=== PATIENT | male | born 2000 | race Caucasian/White ===

== ENCOUNTER 2023-10-15 14:54 | Inpatient (IN) | payer SELFPAY ==
--- NOTE | ~2023-10-15 | XR_ITS ---
EXAMINATION: XR CHEST CLINICAL INFORMATION: Difficulty breathing COMPARISON: None available. TECHNIQUE: 2 views of the chest were obtained. FINDINGS: No significant abnormality is noted involving the heart, lungs, mediastinum, bony thorax or soft tissues. XR/XR chest 2V IMPRESSION: Unremarkable examination.
--- NOTE | 2023-10-15 14:57 | ECG_ITS ---
Test Reason : CHEST PAIN Blood Pressure : / mmHG Vent. Rate : 133 BPM Atrial Rate : 133 BPM P-R Int : 122 ms QRS Dur : 086 ms QT Int : 298 ms P-R-T Axes : 082 093 054 degrees QTc Int : 443 ms Sinus tachycardia Rightward axis Borderline ECG No previous ECGs available Referred By: Saba Galo Electronically Signed By:ROSLYN CROCKETT MD
--- NOTE | 2023-10-15 14:58 | ED_ITS ---
HPI - General Adult General Chief complaint: Upper Respiratory Symptoms Stated complaint: Chest Pain Since This AM Time Seen by Provider: 10/15/23 19:57 History of Present Illness HPI narrative: 23 y/o M patient; PMH asthma; presents from home with report of one day on non- productive cough associated with dyspnea since this morning. The patient used multiple respiratory treatments at home without relief. He reports associated sick contacts at home. He states he required PICU admissions as a child, last emergency visit with admission for asthma exacerbation was three years ago when the patient was COVID +. He endorses he is a smoker. Related Data Allergies Allergy/AdvReac Type Severity Reaction Status Date / Time No Known Allergies Allergy Verified 10/15/23 14:58 Review of Systems 2 Review of Systems: Yes all other systems are reviewed and are negative [facility] Past Medical History Attestation statement: The following information was validated with the patient. Source: old records reviewed Social History Social History Smoked in Last 30 Days: No Use of substances other than those prescribed or required for medical reasons: Yes Substance Use Type: Marijuana Advance Directives: No Advance Directives Information Provided: No Physical Exam ED Vital Signs: Vital Signs - 24 hr 10/15/23 14:59 10/15/23 16:31 10/15/23 20:13 Temperature 100.0 F 103.2 F H Pulse Rate 130 H 138 H 123 H Respiratory Rate 24 H 20 17 Blood Pressure 114/68 122/81 Pulse Oximetry 89 L 96 Oxygen Delivery Method Room Air 10/15/23 20:18 Temperature Pulse Rate 127 H Respiratory Rate 20 Blood Pressure Pulse Oximetry Oxygen Delivery Method BMI result Body Mass Index 20.7 Patient is afebrile, tachycardic, tachypnic and hypoxic on RA. Const General: cooperative HENMT Head: Yes atraumatic Eyes General: appearance normal, both eyes and all related structures Pupils: Equal, round and reactive pupils present EOM: EOMs intact bilaterally Neck Neck: Yes normal visual inspection, Yes full ROM, Yes supple and No tender Chest Chest palpation & inspection: normal inspection of the chest and normal palpation of entire chest wall Resp Other: Bilateral wheezing with decreased air entry Effort & Inspection: normal respiratory effort, able to speak in complete sentences, Actively coughing and no respiratory distress Auscultation: wheezes Cardio Rate: regular rate Rhythm: regular rhythm Peripheral pulses: Peripheral pulses 2+ throughout GI Inspection: Yes normal to inspection, No Abdominal wall edema and No distended Palpation (GI): Soft to palpation, not firm, nontender, no guarding and not rigid Auscultation: normal bowel sounds Neuro Cranial nerves: Yes Equal, round and reactive pupils present Course Course Course Narrative: RME:?23 yo male w/ hx of asthma here for eval of difficulty breathing since this morning. felt feverish a few days ago. this morning began to have difficulty breathing with substernal chest tightness. Does not have an inhaler at home. endorses using Q.branch nebulizer this am prior to arrival. last exacerbation 2 mo ago. Admits to smoking marijuana. +inspiratory wheezes to left lung, +tripoding, +cough cxr, EKG, labs, ed bronch protocol ordered Full HPI, ROS and PE to be performed by the primary ED provider. Reevaluation(s) Reevaluation #1: Patient is afebrile, tachycardia, tachypnic, and hypoxic on RA. Reviewed triage provider work up above. Patient received Albuterol inhaler 8 puffs x1. CXR without evidence of pneumonia. Patient remains tachypnic with reduced air entry on exam. Requested for second breathing treatment. Will provide 1L IVF, Solu-Medrol 125mg IV, and Magnesium 2g IV over 20min for respiratory distress. Re-evaluated patient who remains hypoxic with tachycardia. Placed on 2L NC. Provided tamiflu due to significant respiratory risk factors. Discussed need for admission with hospitalist. Plan: Admit to hospitalist Condition: Stable Medications Administered Generic Name Dose Route Start Last Admin Trade Name Freq PRN Reason Stop Dose Admin Sodium Chloride 1,000 mls @ 999 mls/hr 10/15/23 20:15 10/15/23 20:26 Ns IV 10/15/23 21:15 999 mls/hr .Q1H1M BAN Administration Discontinued Medications Generic Name Dose Route Start Last Admin Trade Name Freq PRN Reason Stop Dose Admin Acetaminophen 975 mg 10/15/23 20:00 10/15/23 20:24 Acetaminophen 325 Mg Tablet PO 10/15/23 20:01 975 mg ONCE ONE Administration Albuterol Sulfate 8 puff 10/15/23 16:24 10/15/23 16:30 Albuterol Sulfate 90 Mcg 8 Gm Inhaler INHALE 10/15/23 16:25 8 puff ONCE ONE Administration Magnesium Sulfate 2 gm in 50 mls @ 150 mls/hr 10/15/23 20:07 10/15/23 20:25 Magnesium Sulfate/H2o IV 10/15/23 20:26 150 mls/hr ONCE ONE Administration Levalbuterol HCl 2.5 mg 10/15/23 20:11 10/15/23 20:14 Levalbuterol Hcl 1.25 Mg/3 Ml Vial.Neb INHALE 10/15/23 20:12 2.5 mg ONCE ONE Administration Methylprednisolone Sodium Succinate 125 mg 10/15/23 20:08 10/15/23 20:25 Methylprednisolone Sod Succ 125 Mg/2 Ml Vial IVPUSH 10/15/23 20:09 125 mg ONCE ONE Administration Medical Decision Making Lab Data 10/15/23 15:13 10/15/23 15:13 Labs: Lab Results 10/15/23 Range/Units 15:13 WBC 8.8 (4.8-10.8) X10*3/uL RBC 4.96 (4.60-5.80) X10*6/uL Hgb 15.5 (14.0-18.0) g/dl Hct 45.1 (42.0-52.0) % MCV 90.9 (80.0-98.0) fL MCH 31.3 (27.0-33.0) pg MCHC 34.4 (31.0-36.0) g/dl RDW 13.0 (11.0-16.0) % Plt Count 280 (160-400) X10*3/uL MPV 10.4 (9.4-12.4) fL Immature Gran % (Auto) 0.3 (0.0-0.4) % Neut % (Auto) 86.4 H (45-73) % Lymph % (Auto) 4.3 L (20-40) % [place] % (Auto) 8.7 (2-11) % Eos % (Auto) 0.0 (0-4) % Baso % (Auto) 0.3 (0-2) % Lymph # (Auto) 0.4 L (1.2-4.9) X10*3/uL [place] # (Auto) 0.8 (0.1-1.2) X10*3/uL Eos # (Auto) 0.0 (0.0-0.4) X10*3/uL Baso # (Auto) 0.0 (0.0-0.2) X10*3/uL Abs Immat Gran (auto) 0.03 (0.00-0.03) X10*3/uL Absolute Neuts (auto) 7.6 (2.0-8.3) x10*3/uL Absolute Nucleated RBC 0.000 (0.0-0.012) X10*3/uL Nucleated RBC % (auto) 0.0 (0.0-0.2) /100WBC PT 17.8 H (11.1-13.3) SEC INR 1.5 H (0.9-1.1) Sodium 136 (135-145) mmol/L Potassium 3.7 (3.3-5.1) mmol/L Chloride 102 (96-108) mmol/L Carbon Dioxide 25 (22-29) mmol/L Anion Gap 13 (12-20) BUN 15 (9-16) mg/dL Creatinine 1.31 (0.5-1.4) mg/dL Estim Creat Clear Calc 74.9 Estimated GFR > 60 Random Glucose 134 H (60-115) mg/dL Calcium 9.5 (8.4-10.2) mg/dL Magnesium 2.0 (1.6-2.6) mg/dL Influenza Type A (PCR) POSITIVE A (Negative) Influenza Type B (PCR) NEGATIVE (Negative) RSV RNA Qual (PCR) NEGATIVE (Negative) SARS-CoV-2 RNA (RT-PCR) NEGATIVE (Negative) Independent Interpretation I performed an independent interpretation of an: EKG Interpretation: ST 133BPM with normal intervals, no prior for comparison. Radiology Impression Discussion of test interpretation with radiology: I have reviewed the radiologist's reading. Radiologist Impression: EXAMINATION: XR CHEST CLINICAL INFORMATION: Difficulty breathing COMPARISON: None available. TECHNIQUE: 2 views of the chest were obtained. FINDINGS: No significant abnormality is noted involving the heart, lungs, mediastinum, bony thorax or soft tissues. XR/XR chest 2V IMPRESSION: Unremarkable examination. Discharge Plan Discharge Clinical Impression: Asthma, Influenza Patient Disposition: Admitted As Inpatient
[2023-10-15 14:59] VITALS: BP 114/68; PULSE 130; RESP 24; TEMP 37.8; O2SAT 89; BMI 20.7
[2023-10-15 15:22] LABS: MANUAL DIFF FLAG NO
[2023-10-15 15:23] LABS: Basophils Percent Auto 0.3 % (0-2); Hematocrit 45.1 % (42.0-52.0); Hemoglobin 15.5 g/dl (14.0-18.0); Imm Gran Abs Auto 0.03 X10*3/uL (0.00-0.03); Imm Gran Pct Auto 0.3 % (0.0-0.4); Lymphocytes Absolute Auto 0.4 X10*3/uL (1.2-4.9); Lymphocytes Percent Auto 4.3 % (20-40); Mean Corpuscular HGB Conc 34.4 g/dl (31.0-36.0); Mean Corpuscular Hemoglobin 31.3 pg (27.0-33.0); Mean Corpuscular Volume 90.9 fL (80.0-98.0); Mean Platelet Volume 10.4 fL (9.4-12.4); Monocytes Absolute Auto 0.8 X10*3/uL (0.1-1.2); Monocytes Percent Auto 8.7 % (2-11); Neutrophils Absolute Auto 7.6 x10*3/uL (2.0-8.3); Neutrophils Percent Auto 86.4 % (45-73); Platelet Count 280 X10*3/uL (160-400); Red Blood Count 4.96 X10*6/uL (4.60-5.80); White Blood Count 8.8 X10*3/uL (4.8-10.8)
[2023-10-15 15:29] LABS: INTERNATIONAL NORM RATIO 1.5 (0.9-1.1); Prothrombin Time 17.8 SEC (11.1-13.3)
[2023-10-15 15:41] LABS: Anion Gap 13 (12-20); Blood Urea Nitrogen 15 mg/dL (9-16); Calcium 9.5 mg/dL (8.4-10.2); Carbon Dioxide 25 mmol/L (22-29); Chloride 102 mmol/L (96-108); Creatinine Clr Calc Pharmacy 74.9; Estimated Glomerular Filt Rate > 60; Glucose Random 134 mg/dL (60-115); Potassium 3.7 mmol/L (3.3-5.1); Sodium 136 mmol/L (135-145)
[2023-10-15 16:00] LABS: Influenza A PCR POSITIVE (Negative); Influenza B PCR NEGATIVE (Negative); Resp Syncy Virus RNA Qual PCR NEGATIVE (Negative); SARS COV2 PCR INHOUSE NEGATIVE (Negative)
[2023-10-15] MEDS: Albuterol Sulfate 90 MCG 8 GM INHALER 8 PUFF INHALE (16:30)
[2023-10-15 16:31] VITALS: PULSE 138; RESP 20; O2SAT 92
[2023-10-15 20:13] VITALS: BP 122/81; PULSE 123; RESP 17; TEMP 39.6; O2SAT 96
[2023-10-15] MEDS: levalbuterol HCL 1.25 MG/3 ML VIAL.NEB 2.5 MG INHALE (20:14)
[2023-10-15 20:18] VITALS: PULSE 127; RESP 20; O2SAT 96
[2023-10-15] MEDS: Acetaminophen 325 MG TABLET 975 MG PO (20:24)
[2023-10-15] MEDS: Magnesium Sulfate/H2O 2 GM/50 ML PIGGYBACK IV (20:25)
[2023-10-15] MEDS: methylPREDNISolone Sod Succ 125 MG/2 ML VIAL IVPUSH (20:25)
[2023-10-15] MEDS: 0.9 % Sodium Chloride 1,000 ML 999 ML IV (20:26)
--- NOTE | 2023-10-15 20:41 | PC.NURSE ---
Resp with pt. Pt ca&ox4, pt currentlt receiving albuterol tx. Pts sister at bedside. IV line placed. Pt medicated per oct. Plan of care ongoing.
--- NOTE | 2023-10-15 20:51 | PM.IMHP ---
History of Present Illness Date of Service: 10/15/23 Attending physician on admission: Мария Smith Chief Complaint: SOB Pt is a 23-year-old male with a PMH significant for?moderate persistent asthma who presents to the ED with?increasing SOB, cough, fever, chills, fatigue, and myalgias since yesterday. Reports being around family members in the house with similar symptoms. Cough has occasionally been productive. Especially complains of backache. Patient with long history of asthma with last asthma exacerbation that required hospitalization 3 years ago, though has a child was hospitalized for asthma ?all the time?. Patient currently not on any home medications. Has recently moved back from [place] and not yet established medical care in the area. Patient did use his nephew's nebulizer and an inhaler he bought at [employer] yesterday and today to little effect. Patient also admits to smoking marijuana 3-4 times every day. Denies chest pain/pressure. No nausea, vomiting, abdominal pain. In the ED pt was febrile up to 103.2, tachycardic up to 138 tachypneic up to 24, and initially satting as low as 89% on RA. Labs were significant for patient testing positive for influenza type a, otherwise grossly unremarkable. No leukocytosis. Stable H&H. No electrolyte abnormalities. Renal function WNL. CXR showed no acute cardiopulmonary process. EKG demonstrated sinus tachycardia of 133, but no evidence of significant ST elevations or depressions. Pt was treated with albuterol, Xopenex, Tylenol, Mag sulfate, Solu-Medrol, Tamiflu, and IVF. Pt will be admitted to the hospital for treatment further evaluation of acute hypoxic respiratory failure in the setting of flu infection with asthma exacerbation. Review of Systems Review of Systems: SOB, difficulty breathing Occasionally productive cough Fever, chills Fatigue Myalgias, especially of back Denies nausea, vomiting PMFSH Medical History (Updated 10/15/23 @ 22:36 by CAITLYN Toro) Moderate persistent asthma Social History Smoked in Last 30 Days: No Use of substances other than those prescribed or required for medical reasons: Yes Substance Use Type: Marijuana Advance Directives: No Advance Directives Information Provided: No Meds Allergies Allergy/AdvReac Type Severity Reaction Status Date / Time No Known Allergies Allergy Verified 10/15/23 14:58 Active Medications: Current Medications Sodium Chloride (Ns) 1,000 mls @ 999 mls/hr IV .Q1H1M BAN Stop: 10/15/23 21:15 Last Admin: 10/15/23 20:26 Dose: 999 mls/hr Home Medications Medication Instructions Recorded Confirmed Last Taken Type No Known Home Meds 10/15/23 10/15/23 Unknown History Physical Exam Vital Signs and Narrative: Vital Signs: Last Vital Signs Temp 103.2 F H 10/15/23 20:13 Pulse 127 H 10/15/23 20:18 Resp 20 10/15/23 20:18 BP 122/81 10/15/23 20:13 Pulse Ox 96 10/15/23 20:13 O2 Del Method Room Air 10/15/23 20:13 BMI result Body Mass Index 20.7 Constitutional: Alert, in no acute distress. Mental Status: Oriented to person, place and time. Eyes: Pupils are equal, round, and reactive to light. Ear, Nose, and Throat: Oropharynx clear, mucous membranes moist. Ears and nose without deformities. Trachea midline. Respiratory: Diffuse expiratory rhonchi bilaterally. Cardiovascular: S1, S2 regular. No murmurs, rubs, or gallops. Gastrointestinal: Abdomen soft, non-tender, non-distended. Normal bowel sounds. Neurologic: Cranial nerves II-XII are grossly intact bilaterally. No focal neurological deficits. Moves all extremities spontaneously. Skin: Warm, dry. Musculoskeletal: No cyanosis or clubbing. Extremities: No edema. Psychiatric: Normal mood and affect. Results Labs 10/15/23 15:13 10/15/23 15:13 Labs: Laboratory Results - last 24 hr 10/15/23 15:13 MCV 90.9 MCH 31.3 MCHC 34.4 RDW 13.0 Plt Count 280 MPV 10.4 Immature Gran % (Auto) 0.3 Neut % (Auto) 86.4 H Lymph % (Auto) 4.3 L [place] % (Auto) 8.7 Eos % (Auto) 0.0 Baso % (Auto) 0.3 Lymph # (Auto) 0.4 L [place] # (Auto) 0.8 Eos # (Auto) 0.0 Baso # (Auto) 0.0 Abs Immat Gran (auto) 0.03 Absolute Neuts (auto) 7.6 Absolute Nucleated RBC 0.000 Nucleated RBC % (auto) 0.0 PT 17.8 H INR 1.5 H Anion Gap 13 Estim Creat Clear Calc 74.9 Estimated GFR > 60 Random Glucose 134 H Calcium 9.5 Magnesium 2.0 Influenza Type A (PCR) POSITIVE A Influenza Type B (PCR) NEGATIVE RSV RNA Qual (PCR) NEGATIVE SARS-CoV-2 RNA (RT-PCR) NEGATIVE Imaging Radiologist's Impressions: Impressions Chest X-Ray 10/15/23 15:28 IMPRESSION: Unremarkable examination. Assessment and Plan (1) Influenza: Status: Acute (2) Asthma exacerbation: Status: Acute Plan Pt is a 23-year-old male with a PMH significant for?moderate persistent asthma who presents to the ED with?increasing SOB, cough, fever, chills, fatigue, and myalgias since yesterday. Pt will be admitted to the hospital for treatment further evaluation of acute hypoxic respiratory failure in the setting of flu infection with asthma exacerbation. Acute hypoxic respiratory failure in the setting of influenza infection and asthma exacerbation Patient with increasing SOB, cough, difficulty breathing, F/C, myalgias, satting as low as 89% on RA Patient currently not on home inhalers after moving back from [place] and not yet establishing medical care in the area Will treat with Xopenex, Solu-Medrol, Tamiflu, guaifenesin Titrate supplemental O2>92, wean as tolerated Monitor respiratory status Marijuana use disorder Patient smokes marijuana 3-4 times daily Advised to quit smoking due to history of asthma Full Code Attending:?Dr. Francois DVT Prophylaxis: Lovenox Pt will require a hospitalization of at least two nights for treatment of?acute hypoxic respiratory failure in the setting of influenza infection with asthma exacerbation. Given patient's hypoxia and significant difficulty breathing, patient will require hospitalization for administration of supplemental O2, IV steroids, breathing treatments, and close monitoring of respiratory status. Quality Stroke Does the patient have a stroke diagnosis?: No VTE Prior VTE?: No VTE Risk Level:: Medical - moderate - high VTE Device Contraindication: Treatment Not Indicated VTE Drug Contraindication: N/A - Med Ordered
--- NOTE | 2023-10-15 21:05 | PHA.MEDREC ---
Pharmacy Consult ? Medication Reconciliation Pharmacy has completed the medication reconciliation. No medication per patient. Hortencia Finch, GraceD
[2023-10-15] MEDS: Oseltamivir Phosphate 75 MG CAPSULE PO (21:52)
--- NOTE | 2023-10-15 21:56 | PC.NURSE ---
Pt requested and given results for xray. Pt ca&ox4, no signs of distress. Pt medicated per oct. Sister remains at bedside. Plan of care ongoing.
[2023-10-15 23:05] VITALS: BP 116/66; PULSE 97; RESP 17; TEMP 37.1; O2SAT 88
[2023-10-15 23:16] VITALS: O2SAT 93
--- NOTE | 2023-10-15 23:16 | PC.NURSE ---
Pt 02 sat dropping to 88. Placed on 1L nc, now at 93. Plan of care ongoing.
[2023-10-15] MEDS: Enoxaparin Sodium 40 MG/0.4 ML SYRINGE SUBCUT (23:23)
--- NOTE | 2023-10-15 23:36 | PC.NURSE ---
Pt medicated per oct. Plan of care ongoing.
[2023-10-16] VITALS (8 sets, daily range): BP systolic 114–133; BP diastolic 44–72; PULSE 73–101; RESP 17–18; TEMP 36.6–36.8; O2SAT 92–95
[2023-10-16] MEDS: 0.9 % Sodium Chloride Flush 3 ML SYRINGE IVFLUSH ×2 (00:11→08:11)
--- NOTE | 2023-10-16 02:03 | PC.NURSE ---
Pt requesting another albuterol tx, hospitalist notified. Pt c/o of being sweaty and hot, currently no fever. Pt requested and light dimmed. Plan of care ongoing.
--- NOTE | 2023-10-16 02:31 | PC.NURSE ---
Pt c/o of a hard time breathing. Pt sweating profusely. Pt had removed his 02, this RN placed 02 back onto pt. Pt educated on breathing techniques. Hospitalist advised. Plan of care ongoing.
[2023-10-16 02:33] LABS: Glucose, Whole Blood 140 mg/dL (60-115)
[2023-10-16] MEDS: methylPREDNISolone Sod Succ 40 MG/ML VIAL IVPUSH ×2 (03:11→10:42)
[2023-10-16] MEDS: Morphine Sulfate 2 MG/ML CARTRIDGE IVPUSH (03:11)
[2023-10-16] MEDS: Magnesium Sulfate/H2O 2 GM/50 ML PIGGYBACK IV (03:12)
[2023-10-16] MEDS: guaiFENesin DM 200/20/10 ML 10 ML SYRUP PO (03:23)
--- NOTE | 2023-10-16 03:24 | PC.NURSE ---
Pt medicated per oct. Plan of care ongoing.
--- NOTE | 2023-10-16 04:07 | PC.NURSE ---
Pt requested and hob lowered and lights dimmed. Plan of care ongoing.
[2023-10-16] MEDS: levalbuterol HCL 1.25 MG/3 ML VIAL.NEB INHALE ×4 (05:04→16:13)
[2023-10-16] MEDS: Oseltamivir Phosphate 75 MG CAPSULE PO (08:11)
--- NOTE | 2023-10-16 08:15 | PC.NURSE ---
pt alert and oriented. reports feeling much better than upon admission. on 2L NC, spo2 94%. Tamilflu given per OCT. IV site on right upper arm patent.
--- NOTE | 2023-10-16 09:52 | P.PNIM_ITS ---
Subjective Subjective Date of Service: 10/16/23 Interval History: seen and evaluated on O2 supplement still reporting SOB no fever or chills Review of Systems Review of Systems: Yes all other systems are reviewed and are negative Physical Exam 2 Vital Signs: Vital Signs: Last Vital Signs Temp 97.8 F 10/16/23 07:27 Pulse 73 10/16/23 07:27 Resp 17 10/16/23 07:27 BP 133/70 10/16/23 07:27 Pulse Ox 93 10/16/23 07:27 O2 Del Method Room Air 10/16/23 07:27 O2 Flow Rate 2 10/16/23 06:30 Oxygen Flow Rate 1 10/15/23 23:16 BMI result Body Mass Index 20.7 Const: Other: Constitutional : Awake, interactive, in mild respiratory distress Neck : Normal inspection, Supple Cardiovascular : RRR, no JVP, no lower extremity edema Respiratory : fair bilateral air entry, no crackles, expiratory wheezes Gastrointestinal: soft, lax, Normal bowel sounds, Non tender Skin : Warm, Dry Neurological : Alert & oriented x3, No focal deficit , Objective Data Active Medications Acetaminophen (Acetaminophen 325 Mg Tablet) 650 mg PO Q6H PRN PRN Reason: Pain, Mild (Pain Scale 1-3) Docusate Sodium (Docusate Sodium 100 Mg Capsule) 100 mg PO DAILY PRN PRN Reason: Constipation Enoxaparin Sodium (Enoxaparin Sodium 40 Mg/0.4 Ml Syringe) 40 mg SUBCUT Q24H [facility] Last Admin: 10/15/23 23:23 Dose: 40 mg Documented By: GERALD Guaifenesin/Dextromethorphan (Guaifenesin Dm 200/20/10 Ml 10 Ml Syrup) 10 ml PO Q4H PRN PRN Reason: Cough Last Admin: 10/16/23 03:23 Dose: 10 ml Documented By: GERALD Levalbuterol HCl (Levalbuterol Hcl 1.25 Mg/3 Ml Vial.Neb) 1.25 mg INHALE RQ4H WHILE AWAKE [facility] Melatonin (Melatonin 3 Mg Tablet) 6 mg PO BEDTIME PRN PRN Reason: Insomnia Methylprednisolone Sodium Succinate (Methylprednisolone Sod Succ 40 Mg/Ml Vial) 40 mg IVPUSH Q8H [facility] Last Admin: 10/16/23 03:11 Dose: 40 mg Documented By: GERALD Ondansetron HCl (Ondansetron Hcl 4 Mg/2 Ml Vial) 4 mg IVPUSH Q8H PRN PRN Reason: Nausea and Vomiting Oseltamivir Phosphate (Oseltamivir Phosphate 75 Mg Capsule) 75 mg PO Q12H [facility] Stop: 10/20/23 09:01 Last Admin: 10/16/23 08:11 Dose: 75 mg Documented By: NATO Sodium Chloride (0.9 % Sodium Chloride Flush 3 Ml Syringe) 3 ml IVFLUSH QSHIFT [facility] Last Admin: 10/16/23 08:11 Dose: 3 ml Documented By: NATO Labs 10/15/23 15:13 10/15/23 15:13 Labs: Laboratory Results - last 24 hr 10/15/23 10/16/23 15:13 02:29 MCV 90.9 MCH 31.3 MCHC 34.4 RDW 13.0 Plt Count 280 MPV 10.4 Immature Gran % (Auto) 0.3 Neut % (Auto) 86.4 H Lymph % (Auto) 4.3 L [place] % (Auto) 8.7 Eos % (Auto) 0.0 Baso % (Auto) 0.3 Lymph # (Auto) 0.4 L [place] # (Auto) 0.8 Eos # (Auto) 0.0 Baso # (Auto) 0.0 Abs Immat Gran (auto) 0.03 Absolute Neuts (auto) 7.6 Absolute Nucleated RBC 0.000 Nucleated RBC % (auto) 0.0 PT 17.8 H INR 1.5 H Anion Gap 13 Estim Creat Clear Calc 74.9 Estimated GFR > 60 POC Glucose 140 H Random Glucose 134 H Calcium 9.5 Magnesium 2.0 Influenza Type A (PCR) POSITIVE A Influenza Type B (PCR) NEGATIVE RSV RNA Qual (PCR) NEGATIVE SARS-CoV-2 RNA (RT-PCR) NEGATIVE Assessment and Plan (1) Asthma exacerbation: Status: Acute (2) Influenza: Status: Acute Plan Pt is a 23-year-old male with a PMH significant for?moderate persistent asthma who presents to the ED with?increasing SOB, cough, fever, chills, fatigue, and myalgias since yesterday. Pt will be admitted to the hospital for treatment further evaluation of acute hypoxic respiratory failure in the setting of flu infection with asthma exacerbation. Acute hypoxic respiratory failure in the setting of influenza infection and asthma exacerbation Patient currently not on home inhalers after moving back from [place] and not yet establishing medical care in the area Continue Xopenex, Solu-Medrol, Tamiflu, guaifenesin Titrate supplemental O2>92, wean as tolerated Monitor respiratory status Marijuana use disorder Patient smokes marijuana 3-4 times daily Advised to quit smoking due to history of asthma Full Code DVT Prophylaxis: Lovenox Will require a hospitalization overnight for treatment of?acute hypoxic respiratory failure in the setting of influenza infection with asthma exacerbation. Given patient's hypoxia and significant difficulty breathing, patient will require hospitalization for administration of supplemental O2, IV steroids, breathing treatments, and close monitoring of respiratory status. Quality Stroke Does the patient have a stroke diagnosis?: No VTE Prior VTE?: No VTE Risk Level:: Medical - moderate - high VTE Device Contraindication: Treatment Not Indicated VTE Drug Contraindication: N/A - Med Ordered
--- NOTE | 2023-10-16 16:59 | PM.DS ---
DS: Providers Provider Date of Service: 10/16/23 Date of admission: 10/15/23 22:20 Primary care physician: None Physician DS: Diagnosis Discharge Diagnosis (1) Asthma exacerbation: Status: Acute (2) Influenza: Status: Acute DS: Summary Hospital Course Hospital Course: Admission note HPI Pt is a 23-year-old male with a PMH significant for?moderate persistent asthma who presents to the ED with?increasing SOB, cough, fever, chills, fatigue, and myalgias since yesterday. Reports being around family members in the house with similar symptoms. Cough has occasionally been productive. Especially complains of backache. Patient with long history of asthma with last asthma exacerbation that required hospitalization 3 years ago, though has a child was hospitalized for asthma ?all the time?. Patient currently not on any home medications. Has recently moved back from [place] and not yet established medical care in the area. Patient did use his nephew's nebulizer and an inhaler he bought at [employer] yesterday and today to little effect. Patient also admits to smoking marijuana 3-4 times every day. Denies chest pain/pressure. No nausea, vomiting, abdominal pain. In the ED pt was febrile up to 103.2, tachycardic up to 138 tachypneic up to 24, and initially satting as low as 89% on RA. Labs were significant for patient testing positive for influenza type a, otherwise grossly unremarkable. No leukocytosis. Stable H&H. No electrolyte abnormalities. Renal function WNL. CXR showed no acute cardiopulmonary process. EKG demonstrated sinus tachycardia of 133, but no evidence of significant ST elevations or depressions. Pt was treated with albuterol, Xopenex, Tylenol, Mag sulfate, Solu-Medrol, Tamiflu, and IVF. Pt will be admitted to the hospital for treatment further evaluation of acute hypoxic respiratory failure in the setting of flu infection with asthma exacerbation. Hospital course The patient was treated with IV steroids, nebulizers and Tamiflu with fair response. He decided to leave AMA after 1 night while we were weaning him down O2 to room air. i explained to him the need to finish treatment plan before discharge and risks including worsening breathing and need of recurrent admission among others but he understood and still wanted to leave. To be discharged on Albuterol inhalor, Prednisone and Tamiflu. Time Attestation Discharge coordination time: Greater than 30 minutes Quality: Safe Use of Opioids Does Pt have an Active Cancer Diagnosis on the Problem List?: No Quality: Stroke Does the patient have a stroke diagnosis?: No Physical Exam Vital Signs: Vital Signs: Last Vital Signs Temp 98.3 F 10/16/23 11:22 Pulse 77 10/16/23 16:14 Resp 18 10/16/23 16:14 BP 116/67 10/16/23 11:22 Pulse Ox 92 10/16/23 11:22 O2 Del Method Room Air 10/16/23 11:22 O2 Flow Rate 2 10/16/23 06:30 Oxygen Flow Rate 1 10/15/23 23:16 BMI result Body Mass Index 20.7 Const: Other: left AMA DS: Data Data Completed and Pending Labs on day of discharge: Laboratory Results - last 24 hr 10/16/23 02:29 POC Glucose 140 H Imaging Chest x-ray: Radiologist's impression: ITS Impressions Chest X-Ray 10/15/23 15:28 IMPRESSION: Unremarkable examination. Discharge Plan Discharge Anticipated Discharge Date/Time: 10/16/23 16:55 Patient Disposition: Left Against Medical Advice Discharge Diagnosis: Asthma exacerbation Influenza Referrals: Physician,None [Primary Care Provider] - 1 Week Discharge Medications: New oseltamivir [Tamiflu] 75 mg Capsule 75 mg PO Q12H Qty: 8 0RF albuterol sulfate 90 mcg/actuation HFA aerosol inhaler 2 puff inhalation Q4-6H PRN (Reason: shortness of breath or wheezing) Qty: 6.7 1RF prednisone 20 mg tablet 40 mg PO DAILY Qty: 8 0RF No Action No Known Home Meds Discharge Orders: Discharge Order (Routine); Ordered 10/16/23 Ordered By: Geovanni Austin Stand Alone Forms: Patient Portal Discharge page Care Plan Goals: . Health Concerns: . Plan of Treatment: . Assessment: AMA
== END 2023-10-16 17:37 | disposition left against medical advice (07) | DRG 193 ==
LOC: HO.ED 20:54 → HO.EDOVER 22:27 → HO.IMC 10-16 14:33 → HO.EDOVER 10-16 17:33
PROVIDERS: Internal Medicine; Physician Assistant Medical; Admitting Provider Student in an Organized Health Care Education/Training Program; Emergency Provider Emergency Medicine; Visit Provider Student in an Organized Health Care Education/Training Program
DX: J10.1 Influenza due to other identified influenza virus with other respiratory manifestations (principal); J96.01 Acute respiratory failure with hypoxia; J45.41 Moderate persistent asthma with (acute) exacerbation; F12.90 Cannabis use, unspecified, uncomplicated
CPT/HCPCS: 0241U; 36415; 71046; 80048; 82947; 83735; 85025; 85610; 93005; 94640; 99285; J1650; J2270; J2920; J2930; J3475

== ENCOUNTER → 2023-10-15 14:57 | Outpatient (BNV) | payer SELFPAY | PROVIDERS: Admitting Provider Student in an Organized Health Care Education/Training Program; Emergency Provider Emergency Medicine; Visit Provider Internal Medicine Cardiovascular Disease | DX: R00.0 Tachycardia, unspecified (principal) | CPT/HCPCS: 93010 ==

== ENCOUNTER → 2023-10-15 22:20 | Outpatient (BNV) | payer SELFPAY | PROVIDERS: Admitting Provider Student in an Organized Health Care Education/Training Program; Emergency Provider Emergency Medicine; Visit Provider Student in an Organized Health Care Education/Training Program | DX: J45.901 Unspecified asthma with (acute) exacerbation (principal); J11.1 Influenza due to unidentified influenza virus with other respiratory manifestations; Z53.29 Procedure and treatment not carried out because of patient's decision for other reasons | CPT/HCPCS: 99223; 99238 ==